=== PATIENT | male | born 1985 | race Caucasian/White ===

== ENCOUNTER → 2019-11-25 | Outpatient (CLI) | payer BC ==
--- NOTE | 2019-11-25 21:48 | CONS ---
CONSULTATION DATE OF SERVICE: 11/25/2019 34-year-old gentleman who has been evaluated in the sleep center for possible obstructive sleep apnea-hypopnea syndrome and excessive daytime sleepiness. 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 On days off, he sleeps from around 4 to 8 p.m. until 3 or 5 a.m. FALLING ASLEEP: Usually no problems with falling asleep, although he has TV set in bedroom. DURING SLEEP: He usually sleeps on the side position. According to his girlfriend, he has loud snoring and witnessed episodes of stopped breathing during sleep. He also wakes up with choking, heartburn. Positive history of sleep talking, out of dream movements, hitting, again according to his girlfriend. Positive history of sweating at night, episodes of shortness of breath during the sleep. DURING THE DAY/SLEEP WAKE EVALUATION: After sleep, patient wakes up tired with difficulties to pay attention falling asleep, has problems with memory, concentration, irritability, anxiety, claustrophobia. [place] Sleepiness Scale significantly increased to 15 and that with up to 6 caffeinated beverages. He takes one nap usually after noon time. For the last year, patient increased his weight around 50 pounds. At night he wakes up 3 times with nocturia. No history of hypnagogic hallucinations, sleep paralysis or cataplexy. PAST MEDICAL HISTORY: Positive for acid reflux, anxiety, allergies, episodes of headaches. PAST SURGICAL HISTORY: None. MEDICATIONS: Effexor, omeprazole, cetirizine, ibuprofen and Aleve, multivitamins and TUMS. SOCIAL HISTORY: Positive for smoking about 1 pack a day for 30 years. Alcohol consumption occasional. FAMILY HISTORY: Family history of hypertension, hyperlipidemia, asthma, sleep apnea, cancer, acid reflux, diabetes, thyroid problems. REVIEW OF SYSTEMS: Multiple awakenings from sleep, sleepiness. PHYSICAL EXAM: gentleman without distress. BP 133/83, HR 94, RR 16, height 6 feet and 1/2, weight 309, body mass index 49.1, temperature 98.0. Oxygen saturation at room air 97%. Oropharynx: Low position of soft palate, close to normal Mallampati 2. Restriction of nasal breathing. Wide neck, 17-3/4 inches in circumference. NECK: Supple, no JVD. Thyroid is not palpable. LUNGS: Clear to percussion and to auscultation. Good air exchange. No wheezing or rhonchi. HEART: S1, S2 regular. No murmurs, gallops, or rubs. ABDOMEN: Obese. Soft and nontender. Bowel sounds are present. No organomegaly appreciated. EXTREMITIES: No clubbing or cyanosis. SOCIAL HUMAN SERVICES ASSISTANTS: Awake, alert, and oriented X3. Cranial nerves 2 to 7 intact. There is no fasciculation or atrophy. noted. No focal deficits observed. IMPRESSION: 1. Loud snoring, witnessed episodes of stopped breathing during the sleep, multiple awakenings from sleep. Wide neck, sleepiness. Obstructive sleep apnea-hypopnea syndrome. 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 3. Excessive daytime sleepiness, even while using up to 6 caffeinated beverages. 4. Episodes of out of dream movements. Possible REM sleep behavior disorder. 5. History of kicking in the past. Possible periodic limb movements. 6. Anxiety. 7. Acid reflux. 8. History of allergy. 9. Headaches. PLAN: 1. Polysomnography for evaluation of patient's breathing during sleep. 2. CPAP/BiPAP titration if sleep study confirms obstructive sleep apnea-hypopnea syndrome. 3. Preferable position during sleep on the side. 4. No driving if patient feels any sleepiness. 5. I will see patient for follow up visit to explain results of testing and following plan. Thank you very much for referring this patient for consultation. Sincerely, Jack Rios MD, PhD, FAASM Diplomat of [employer] [employer] Hosiery Mater of [facility] [place] MMODL / IJN: [id number] /
== END | disposition home or self-care (01) ==
LOC: SLEEP 14:47 → MERGE 15:00
PROVIDERS: ATTEND Internal Medicine
DX: G47.33 Obstructive sleep apnea (adult) (pediatric) (principal); F41.9 Anxiety disorder, unspecified; K21.9 Gastro-esophageal reflux disease without esophagitis; R51 Headache; Z87.892 Personal history of anaphylaxis; F17.210 Nicotine dependence, cigarettes, uncomplicated; Z79.1 Long term (current) use of non-steroidal anti-inflammatories (NSAID); Z79.899 Other long term (current) drug therapy
CPT/HCPCS: 99211

== ENCOUNTER → 2021-05-03 | Outpatient (CLI) | payer BC ==
--- NOTE | 2021-05-03 21:09 | SFUN ---
SLEEP CENTER FOLLOW UP NOTE DATE OF SERVICE: 05/03/2021 35-year-old gentleman has been followed in Sleep Center for treatment of obstructive sleep apnea-hypopnea syndrome. Patient continued to have problems with awakenings from sleep, snoring, sleepiness during the day. Sleep study was done in December of 2019 and showed extremely severe obstructive and central sleep apnea-hypopnea syndrome. Because of the situation with Covid 19 pandemic at that time, the patient did not have treatment. I discussed results of the sleep study with patient in details. MEDICATIONS: Venlafaxine at nighttime, omeprazole. PHYSICAL EXAMINATION: GENERAL: Patient in no distress. BP 143/84, HR about 100, RR 15, height 5 feet 7 inches, weight 313, body mass index 49.0, temperature 97.4, oxygen saturation at room air 95%. HEENT: PERRLA, EOMI, evaluation of oropharynx showed tongue protrudes midline. NECK: Supple, no JVD. Thyroid is not palpable. LUNGS: Clear to percussion and to auscultation. Good air exchange. No wheezing or rhonchi. HEART: S1, S2 regular. No murmurs, gallops, or rubs. ABDOMEN: Obese. Soft and nontender. Bowel sounds are present. No organomegaly appreciated. EXTREMITIES: No clubbing or cyanosis. INFORMATION SYSTEMS AUDIT MANAGER: Awake, alert, and oriented X3. Cranial nerves 2 to 7 intact. There is no fasciculation or atrophy. noted. No focal deficits observed. IMPRESSION: 1. Obstructive and central sleep apnea-hypopnea syndrome. 2. Morbid obesity. 3. Mild periodic limb movements by results of previous sleep study. 4. Anxiety. 5. Acid reflux. 6. Allergies. 7. Headaches. PLAN: 1. Home sleep apnea test for reevaluation of patient breathing during sleep. The previous sleep study was done more than one year ago. 2. CPAP if necessary, BiPAP titration for correction of respiratory abnormalities during sleep. After reviewing results of home sleep apnea test. 3. Aggressive losing weight program. 4. Sleep hygiene with regular time in bed for 7-1/2 to 8 hours. 5. Precautions related to driving. No driving if feeling sleepiness. I spent with the patient and documentation, 30 minutes. Thank you very much for allowing me to participate in management of your patient. Sincerely, Jack Rios MD, PhD, FAASM Diplomat of [place] [employer] Sleep Medicine Board of [place] [employer] Rolled Ham Lacer of [facility] [place] [id number] / LORENZAN: [id number] /
== END | disposition home or self-care (01) ==
LOC: SLEEP 14:34
PROVIDERS: ATTEND Internal Medicine
DX: G47.33 Obstructive sleep apnea (adult) (pediatric) (principal); G47.61 Periodic limb movement disorder; F41.9 Anxiety disorder, unspecified; K21.9 Gastro-esophageal reflux disease without esophagitis; R51.9 Headache, unspecified; T78.40XA Allergy, unspecified, initial encounter; E66.01 Morbid (severe) obesity due to excess calories; Z68.42 Body mass index [BMI] 45.0-49.9, adult; Z79.899 Other long term (current) drug therapy

== ENCOUNTER → 2021-09-26 | Outpatient (CLI) | payer BC ==
--- NOTE | 2021-09-26 23:38 | SFUN ---
SLEEP CENTER FOLLOW UP NOTE DATE OF SERVICE: 09/26/2021 This 36-year-old gentleman has been followed in Sleep Center for treatment of obstructive sleep apnea-hypopnea syndrome. Recently the patient had a home sleep apnea test which showed extremely bad obstructive sleep apnea-hypopnea syndrome with apnea-hypopnea index 93.3 and oxygen desaturation to 47%. The patient had CPAP titration and his respiration normalized with CPAP. I discussed results of sleep studies with the patient and his family in detail. Subsequently patient received CPAP equipment. Today is his first visit after he was started on treatment with CPAP. The patient is trying to use CPAP equipment but has difficulties related to the mask. Sometimes he takes the mask off during the night out of the face. He is using a nasal mask. I checked the reading from his machine. He used it 51/60 days, which is 85%, and 35% for more than 4 hours. Average usage is about 3 hours and 26 minutes. Range of the pressure in the machine is between 9 and 16 and average pressure is 12.1 to the maximum 12.8. With this pressure, apnea-hypopnea index is 3.2, which is normal. Leak is 28.3, which is slightly high. PHYSICAL EXAMINATION: GENERAL: Pleasant patient in no distress. VITAL SIGNS: BP 144/94, HR more than 100, RR 18, weight 315, temperature 97.7, oxygen saturation at room air 94%. HEENT: PERRLA, EOMI, evaluation of oropharynx showed tongue protrudes midline. Low position of soft palate. NECK: Supple, no JVD. Thyroid is not palpable. LUNGS: Clear to percussion and to auscultation. Good air exchange. No wheezing or rhonchi. HEART: S1, S2 regular. No murmurs, gallops, or rubs. ABDOMEN: Obese. EXTREMITIES: No clubbing or cyanosis. MOLDER INFLATED BALL: Awake, alert, and oriented X3. Cranial nerves 2 to 7 intact. There is no fasciculation or atrophy. noted. No focal deficits observed. IMPRESSION: 1. Extremely severe obstructive sleep apnea-hypopnea syndrome; apnea-hypopnea index 93.3 with oxygen desaturation to 47%. Respiration normalized on treatment with CPAP, but at the present time patient has difficulties with the usage of CPAP. 2. Mild periodic limb movements during titration. 3. Morbid obesity. 4. History of anxiety. 5. Acid reflux. 6. Allergies. 7. Headaches. I spent with the patient and family more than 30 minutes to discuss with them necessity for treatment of severe obstructive sleep apnea syndrome. I discussed all different types of the treatment. In his situation, CPAP is still the preferable way of treatment. PLAN: 1. Prescription for different style of the mask, Stevenson FX nasal pillows. 2. Patient should use equipment every night for the whole night. 3. Losing weight. 4. Sleep hygiene with regular time in bed for 7-1/2 to 8 hours. 5. No driving if feeling sleepiness. 6. Follow-up visit in 4-6 weeks. Thank you very much for allowing me to participate in the management of your patient. Sincerely, Jack Rios MD, PhD, FAASM Diplomat of [employer] Sleep Medicine Board of [employer] Hearing Aide Technician of [facility] [place] CARMEN / MORENITA: [id number] /
== END ==
LOC: SLEEP 16:40
PROVIDERS: ATTEND Internal Medicine
DX: G47.33 Obstructive sleep apnea (adult) (pediatric) (principal); G47.36 Sleep related hypoventilation in conditions classified elsewhere; G47.61 Periodic limb movement disorder; E66.01 Morbid (severe) obesity due to excess calories; F41.9 Anxiety disorder, unspecified; K21.9 Gastro-esophageal reflux disease without esophagitis; R51.9 Headache, unspecified; F17.200 Nicotine dependence, unspecified, uncomplicated; Z88.1 Allergy status to other antibiotic agents; Z99.89 Dependence on other enabling machines and devices

== ENCOUNTER → 2022-10-30 | Outpatient (CLI) | payer BC ==
[2022-10-30 16:43] LABS: Basophils # (A) 0.05 X 10*3/uL (0.00-0.10); Basophils % (A) 0.6 %; Eosinophils # (A) 0.14 X 10*3/uL (0.04-0.35); Eosinophils % (A) 1.6 %; HCT 45.5 % (39.6-50.0); HGB 14.7 g/dL (13.0-17.0); Immature Grans, Automated 0.6 %; Lymphocytes # (A) 1.24 X 10*3/uL (0.90-5.00); Lymphocytes % (A) 14.2 %; MCH 30.9 pg (27.0-32.0); MCHC 32.3 g/dL (32.0-37.0); MCV 95.6 fL (80.0-97.0); Mean Platelet Volume 11.4 fL (9.5-12.2); Monocytes # (A) 0.87 X 10*3/uL (0.20-1.00); NRBC Per 100 WBC 0 /100 WBCS (0.0-0.0); Neutrophils # (A) 6.38 X 10*3/uL (1.80-7.70); Platelet Count 316 X 10*3/uL (140-440); RBC 4.76 X 10*6/uL (4.40-5.60); RDW 11.8 % (11.5-14.5); WBC 8.73 X 10*3/uL (4.50-10.00)
[2022-10-31 04:03] LABS: ALT 34 U/L (10-49); AST 28 U/L (14-35); African American GFR (CKD) 110.4 (60.0-200.0); Albumin 4.6 g/dL (3.8-4.9); Albumin/Globulin Ratio 1.84 (1.60-3.17); Alkaline Phosphatase 91 U/L (41-126); BUN/Creat Ratio 16.34 Ratio (12.00-20.00); Blood Urea Nitrogen 16.5 mg/dL (9.0-27.0); Calcium 9.9 mg/dL (8.7-10.3); Carbon Dioxide 24.2 mmol/L (20.0-27.5); Chloride 99 mmol/L (96-109); Chol/HDL Ratio 5.27 Ratio; Globulin 2.5 g/dL (1.6-3.3); Glucose 101 mg/dL (70-110); LDL Cholesterol,Calculated 187.6 mg/dL (0.0-131.0); Non-African American GFR(CKD) 95.3 (60.0-200.0); Potassium 4.3 mmol/L (3.5-5.5); Sodium 136 mmol/L (135-145); Total Protein 7.2 g/dL (6.2-8.2)
== END | disposition home or self-care (01) ==
LOC: LABWHC1 09:36
PROVIDERS: ATTEND Internal Medicine
DX: Z11.59 Encounter for screening for other viral diseases (principal); I10 Essential (primary) hypertension
CPT/HCPCS: 36415; 80053; 80061; 84443; 85025; 86803

== ENCOUNTER → 2024-09-21 | Outpatient (CLI) | payer BC ==
[2024-09-21 16:04] LABS: Basophils # (A) 0.05 X 10*3/uL (0.00-0.10); Basophils % (A) 0.6 %; Eosinophils # (A) 0.14 X 10*3/uL (0.04-0.35); Eosinophils % (A) 1.6 %; HCT 47.2 % (39.6-50.0); HGB 14.8 g/dL (13.0-17.0); Lymphocytes # (A) 1.26 X 10*3/uL (0.90-5.00); Lymphocytes % (A) 14.1 %; MCH 30.4 pg (27.0-32.0); MCHC 31.4 g/dL (32.0-37.0); MCV 96.9 FL (80.0-97.0); Mean Platelet Volume 11.4 FL (9.5-12.2); Monocytes # (A) 0.84 X 10*3/uL (0.20-1.00); Monocytes % (A) 9.4 %; NRBC Per 100 WBC 0 X 10*3/uL (0.00-0.01); Neutrophils # (A) 6.63 X 10*3/uL (1.80-7.70); Platelet Count 324 X 10*3/uL (140-440); RBC 4.87 X 10*6/uL (4.40-5.60); WBC 8.95 X 10*3/uL (4.50-10.00)
[2024-09-21 18:26] LABS: ALT 39 U/L (10-49); AST 26 U/L (14-35); Albumin 4.5 g/dL (3.8-4.9); Albumin/Globulin Ratio 1.73 Ratio (1.60-3.17); Alkaline Phosphatase 118 U/L (41-126); BUN/Creat Ratio 12.11 Ratio (12.00-20.00); Blood Urea Nitrogen 10.9 mg/dL (9.0-27.0); Calcium 9.8 mg/dL (8.7-10.3); Carbon Dioxide 26.3 mmol/L (21.6-31.8); Chloride 100 mmol/L (96-109); Chol/HDL Ratio 3.33 Ratio; Globulin 2.6 g/dL (1.6-3.3); Glucose 97 mg/dL (70-110); LDL Cholesterol,Calculated 102.7 mg/dL (0.0-131.0); Magnesium 2.1 mg/dL (1.5-2.4); Potassium 4.5 mmol/L (3.5-5.5); Sodium 138 mmol/L (135-145); Total Bilirubin 0.7 mg/dL (0.3-1.2); Total Protein 7.1 g/dL (6.2-8.2)
== END | disposition home or self-care (01) ==
LOC: LABWHC1 09:05
PROVIDERS: ATTEND Internal Medicine
DX: I10 Essential (primary) hypertension (principal); E78.5 Hyperlipidemia, unspecified
CPT/HCPCS: 36415; 80053; 80061; 83735; 84443; 85025

== ENCOUNTER → 2024-11-08 | Outpatient (CLI) | payer BC ==
--- NOTE | 2024-11-08 18:20 | CT ---
EXAMINATION TYPE: CT abdomen pelvis w con CT DLP: 3936 mGycm, Automated exposure control for dose reduction was used. DATE OF EXAM: 11/08/2024 5:31 PM COMPARISON: Abdominal ultrasound 11/04/2018 CLINICAL INDICATION:Male, 39 years old with history of K43.9 VENTRAL HERNIA; ventral hernia TECHNIQUE: Standard CT of the abdomen and pelvis following the administration of 100 cc of Isovue 3 00 IV contrast material and oral contrast. Coronal and sagittal reformats were performed. FINDINGS: LOWER CHEST: Unremarkable ABDOMEN LIVER: Unremarkable GALLBLADDER AND BILE DUCTS: Unremarkable. PANCREAS: Unremarkable. SPLEEN: Unremarkable. ADRENAL GLANDS: Unremarkable. KIDNEYS AND URETERS: No evidence of hydronephrosis or renal calculus. The kidneys enhance symmetrical ly. Contrast is demonstrated within both collecting systems on the delayed phase. PELVIS BLADDER: Unremarkable REPRODUCTIVE: Unremarkable. ABDOMEN & PELVIS STOMACH AND BOWEL: Stomach and duodenum are unremarkable. No focal bowel wall thickening or surroundi ng inflammatory changes. Enteric contrast reaches the distal small bowel. The appendix is within norm al limits. Distal colonic diverticulosis without evidence for acute diverticulitis. No evidence of eddie wel obstruction. PERITONEUM: No evidence of pneumoperitoneum or free fluid. VASCULATURE: No evidence of aortic aneurysm. MUSCULOSKELETAL: No acute osseous abnormalities LYMPH NODES: No evidence for lymphadenopathy. SOFT TISSUE/ABDOMINAL WALL: Moderate sized supraumbilical fat filled ventral wall hernia. This contai ns mesenteric fat and vessels with small bowel approximating its opening. The hernia sac measures up to 11.5 cm. The defect measures 3.3 x 3.0 cm in TV and CC dimensions. Patulous bilateral inguinal rin gs. IMPRESSION: 1. Moderate-sized supra umbilical ventral wall hernia containing mesenteric fat and vessels with smal l bowel approximating its opening. 2. Colonic diverticulosis without evidence for acute diverticulitis. [facility], , 11/08/2024 6:18 PM
== END | disposition home or self-care (01) ==
LOC: RADCTMAIN 14:03
PROVIDERS: ATTEND Surgery
DX: K43.9 Ventral hernia without obstruction or gangrene (principal); K57.30 Diverticulosis of large intestine without perforation or abscess without bleeding
CPT/HCPCS: 74177; Q9967